=== PATIENT | female | born 1940 | race Caucasian/White ===

== ENCOUNTER → 2016-11-29 | Outpatient (CLI) | payer MEDICARE, OTHER | END | disposition home or self-care (01) | LOC: CFH 09:51 | PROVIDERS: ATTEND Family Medicine | DX: Z12.31 Encounter for screening mammogram for malignant neoplasm of breast (principal) | CPT/HCPCS: G0202 ==

== ENCOUNTER → 2017-12-06 | Outpatient (CLI) | payer MEDICARE, OTHER | END | disposition home or self-care (01) | LOC: CFH 14:01 | PROVIDERS: ATTEND Family Medicine | DX: Z12.31 Encounter for screening mammogram for malignant neoplasm of breast (principal) | CPT/HCPCS: 77063; 77067 ==

== ENCOUNTER → 2018-01-01 | Outpatient (CLI) | payer MEDICARE, OTHER | END | disposition home or self-care (01) | LOC: CFH 14:06 | PROVIDERS: ATTEND Family Medicine | DX: Z13.820 Encounter for screening for osteoporosis (principal); M85.80 Other specified disorders of bone density and structure, unspecified site; N95.9 Unspecified menopausal and perimenopausal disorder | CPT/HCPCS: 77080 ==

== ENCOUNTER → 2018-05-28 | Outpatient (CLI) | payer MEDICARE, OTHER | END | disposition home or self-care (01) | LOC: CFH 13:01 | PROVIDERS: ATTEND Otolaryngology | DX: J32.0 Chronic maxillary sinusitis (principal) | CPT/HCPCS: 70486 ==

== ENCOUNTER 2018-06-27 23:34 | Emergency (ER) | payer MEDICARE, OTHER ==
[~2018-06-27] VITALS: Ht 154.9 cm; Wt 52.0 kg
--- NOTE | 2018-06-27 23:59 | NUR ---
PT PRESENTS TO ED C/O "HIGH HEART RATE AND AFIB." PT STATES RECENT DX OF AFIB AND PUT ON BLOOD THINNERS May. STATES INTERMITTENT BOUTS OF AFIB. DENIES ANY CARDIOVERSIONS OR AFIB W/ RVR HX. PT APPEARS TO BE IN AFIB W/ RVR TODAY. NEURO APPEARS FULLY INTACT. PERRLA. A+Ox4. HR OF 130-160'S. ALL MONITORING APPLIED. IV INITIATED AT THIS TIME.
--- NOTE | 2018-06-28 00:09 | NUR ---
PT GIVEN CARDIZEM AND HR 90-100'S IMMEDIATELY AFTER. MD NOTIFIED. BP WNL.
[2018-06-28 00:19] LABS: BASOPHILS # (AUTO) 0.05 x10^3/uL (0-0.1); BASOPHILS % (AUTO) 1 % (0-1); EOSINOPHILS # (AUTO) 0.14 x10^3/uL (0-0.4); EOSINOPHILS % (AUTO) 2 % (1-7); LYMPHOCYTES # (AUTO) 1.56 x10^3/uL (1-3.4); LYMPHOCYTES % (AUTO) 21 % (22-44); MD NO; MEAN CORPUSCULAR HEMOGLOBIN 34.1 pg (27.0-34.8); MEAN CORPUSCULAR HGB CONC 35.2 g/dL (32.4-35.8); MEAN CORPUSCULAR VOLUME 96.8 fL (80-100); MEAN PLATELET VOLUME 8.8 fL (7.4-10.4); MONOCYTES % (AUTO) 12 % (2-9); NEUTROPHILS # (AUTO) 4.88 x10^3/uL (1.8-6.8); NEUTROPHILS % (AUTO) 65 % (42-75); PLATELET COUNT 251 x10^3/uL (130-400); RED BLOOD COUNT 4.44 x10^6/uL (3.82-5.3); RED CELL DISTRIBUTION WIDTH 12.4 % (9.6-15.2)
[2018-06-28] MEDS ORDERED: DILTIAZEM 5 MG/ML, 5ML ONE (00:21)
[2018-06-28 00:25] LABS: PROTHROMBIN TIME 10.6 Seconds (9.6-11.5)
[2018-06-28 00:26] LABS: ALANINE AMINOTRANSFERASE 22 U/L (12-78); ANION GAP 12 mmol/L (5-15); CALCIUM 8.3 mg/dL (8.5-10.1); CHLORIDE 101 mmol/L (98-107)
[2018-06-28 00:29] LABS: ALKALINE PHOSPHATASE 70 U/L (45-117); BILIRUBIN,TOTAL 0.6 mg/dL (0.2-1.0); TOTAL PROTEIN 7.8 g/dL (6.4-8.2)
[2018-06-28] MEDS ORDERED: PROPOFOL 10 MG/ML, 20ML IVPush ONE (00:30)
[2018-06-28] MEDS ORDERED: SODIUM CHLORIDE 0.9% 1,000ML IVBOLUS ONE (00:30)
[2018-06-28] MEDS ORDERED: SODIUM CHLORIDE FLUSH 10ML SYR IVF ONE (00:30)
[2018-06-28] MEDS ORDERED: DILTIAZEM 5 MG/ML, 5ML IVPush ONE (00:30)
--- NOTE | 2018-06-28 00:47 | NUR ---
TASK RN: PT LAYING IN RICKY GERARDO NOTED. PT DENIES PAIN, "I FEEL SO MUCH BETTER. I FEEL SAFE". SIGNIFICANT IMPROVEMENT IN HR NOTED, RATE 78-85 AFIB. BP STABLE. BP/SPO2/ECG MONITORING IN PLACE. SO AT BEDSIDE
[2018-06-28] MEDS ORDERED: PROPOFOL 10 MG/ML, 20ML ONE (01:01)
--- NOTE | 2018-06-28 01:41 | NUR ---
PT HAD A SUCCESSFUL CONSCIOUS SEDATION FOR CARDIOVERSION FOR AFIB. PROCEDURE STARTED 0130 AND ENDED 0134. PT RECOVERED TO BASELINE MENTATION BY 0140. PT VSS THROUGH WHOLE PROCEDURE. NO SUPP O2 BEING ADMIN AT THIS TIME. WILL CONTINUE TO MONITOR MENTATION AND VITALS.
[2018-06-28 02:35] VITALS: BP 122/61
--- NOTE | 2018-06-28 02:35 | NUR ---
PT CONTINUED TO HOLD MENTATION BASELINE AND VS BASELINE. MD AWARE. PT TBDC. AWAITING D/C INSTRUCTIONS.
== END 2018-06-28 02:49 | disposition home or self-care (01) ==
LOC: ED 06-28 02:05
DX: I48.0 Paroxysmal atrial fibrillation (principal); I10 Essential (primary) hypertension
CPT/HCPCS: 36415; 71045; 80053; 85025; 85610; 85730; 92960; 93005; 96374; 99285; J7030; 96361

== ENCOUNTER 2018-07-31 08:44 | Outpatient (CLI) | payer MEDICARE, OTHER ==
[~2018-07-31 08:44] MED LIST: REGADENOSON 0.4 MG/5 ML SYRINGE ONE
== END 2018-07-31 23:59 | disposition home or self-care (01) ==
LOC: CFH 08:44
PROVIDERS: ATTEND Nurse Practitioner Family
DX: I48.0 Paroxysmal atrial fibrillation (principal); I35.8 Other nonrheumatic aortic valve disorders; I10 Essential (primary) hypertension
CPT/HCPCS: 78452; 93017; 93306; A9502; J2785

== ENCOUNTER 2019-03-17 07:32 | Outpatient (CLI) | payer MEDICARE, OTHER | END 2019-03-17 23:59 | disposition home or self-care (01) | LOC: CFH 07:32 | PROVIDERS: ATTEND Family Medicine | DX: R92.2 Inconclusive mammogram (principal) | CPT/HCPCS: 76641 ==

== ENCOUNTER 2019-12-03 12:17 | Outpatient (CLI) | payer MEDICARE, OTHER | END 2019-12-03 23:59 | disposition home or self-care (01) | LOC: CFH 12:17 | PROVIDERS: ATTEND Internal Medicine Cardiovascular Disease | DX: I08.3 Combined rheumatic disorders of mitral, aortic and tricuspid valves (principal); I48.0 Paroxysmal atrial fibrillation; I10 Essential (primary) hypertension | CPT/HCPCS: 93306 ==

== ENCOUNTER → 2020-01-09 | Outpatient (CLI) | payer MEDICARE, OTHER | END | disposition home or self-care (01) | LOC: CFH 09:32 | PROVIDERS: ATTEND Family Medicine | DX: Z12.31 Encounter for screening mammogram for malignant neoplasm of breast (principal); N95.9 Unspecified menopausal and perimenopausal disorder; M85.89 Other specified disorders of bone density and structure, multiple sites | CPT/HCPCS: 76641; 77063; 77067; 77080 ==